=== PATIENT | female | born 1965 | race Two or more races ===

== ENCOUNTER 2024-02-13 17:48 | Emergency (ER) | payer MEDICAID, SELFPAY ==
[2024-02-13 18:23] VITALS: BP 179/92; PULSE 71; RESP 17; TEMP 36.7; O2SAT 97; BMI 29.9
--- NOTE | 2024-02-13 18:47 | XR_ITS ---
Examination: PA lateral chest 2 views Technique: Upright PA lateral chest 2 views Exam date and time: February 13, 2024 1942 hrs. Comparison January 21, 2016 Indications: Onset chest pain today. Findings: Normal heart size Minor subsegmental atelectasis in the lingular segment left upper lobe No interval pneumonia or pulmonary edema Diffuse moderate thoracic degenerative disc disease Impression: Atelectasis in the lingular segment left upper lobe No lobar pneumonia or pulmonary edema
--- NOTE | 2024-02-13 18:47 | EKG_ITS ---
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
--- NOTE | 2024-02-13 18:47 | PD.EDRME ---
Rapid Medical Screening Exam RME Arrival date/time: 02/13/24 17:48 Chief Complaint: General Adult/Misc Complain Time Seen by Provider: 02/13/24 18:33 Vital signs: Vital Signs Temperature 98.1 F 02/13/24 18:23 Pulse Rate 71 02/13/24 18:23 Respiratory Rate 17 02/13/24 18:23 Blood Pressure 179/92 H 02/13/24 18:23 Pulse Oximetry (%) 97 02/13/24 18:23 Oxygen Delivery Method Room Air 02/13/24 18:23 Vital signs reviewed by provider: Yes RME Narrative: 58-year-old female with hypertension and anxiety presents to the ED for evaluation of high blood pressure reading at home. She reports blood pressure reading of 200 systolic at 1730 today. She reports taking x 2 doses of her hypertension medication at that time. She denies chest pain, headache, visual changes, shortness of breath, cough.
[2024-02-13 19:28] LABS: Basophils % (Auto) 0 % (0-2.5); Eosinophils # (Auto) 0.1 Thou/mm3 (0.0-0.5); Eosinophils % (Auto) 1 % (0-10); Hematocrit 39.6 % (36.0-46.0); Hemoglobin 13.8 g/dL (12.0-16.0); Immature Granulocytes % (Auto) 0 % (0-0); Immature Granulocytes Auto 0.03 Thou/mm3 (0.00-0.00); Lymphocytes % (Auto) 19 % (10-50); Mean Corpuscular HGB Conc 34.8 g/dl (31.0-37.0); Mean Corpuscular Hemoglobin 29.6 pg (25.0-35.0); Mean Corpuscular Volume 85 fL (80-100); Monocytes # (Auto) 0.7 Thou/mm3 (0.0-0.8); Monocytes % (Auto) 7 % (0-12); Neutrophils # (Auto) 7.7 Thou/mm3 (1.8-7.7); Neutrophils % (Auto) 73 % (37-80); Nucleated Red Blood Cell % 0 /100 WBC (0); Platelet Count 219 Thou/mm3 (140-440); RDW Standard Deviation 39.5 fL (36.4-46.3); Red Blood Count 4.66 Miln/mm3 (4.00-5.20); White Blood Count 10.5 Thou/mm3 (3.6-11.0)
[2024-02-13 19:38] LABS: INR 1.1 (0.9-1.3); Partial Thromboplastin Time 29.4 Seconds (22.0-36.0); Prothrombin Time 11.6 Seconds (9.0-12.2)
[2024-02-13 19:41] LABS: B-Type Natriuretic Peptide 28 pg/mL (0-100)
[2024-02-13 19:43] LABS: Alanine Aminotransferase 32 U/L (10-49); Albumin, Serum 5.1 gm/dL (3.5-5.0); Albumin/Globulin Ratio 1.8 (1.2-2.2); Alkaline Phosphatase 74 U/L (46-116); Anion Gap 7 (7-16); Aspartate Amino Transferase 25 U/L (0-34); BUN/Creatinine Ratio 19 Ratio (12-20); Bilirubin,Total 0.5 mg/dL (0.3-1.2); Blood Urea Nitrogen 19 mg/dL (9-23); Calcium 10.4 mg/dL (8.3-10.6); Calcium (Corrected) 10.4 mg/dL (8.5-10.1); Carbon Dioxide 27.9 mMol/L (20.0-31.0); Chloride 98 mMol/L (98-107); Estimated Creatinine Clearance 63.9 mL/min (>60); Globulin 2.8 gm/dL (2.3-3.5); Glucose 131 mg/dL (74-106); Magnesium 1.9 mg/dL (1.6-2.6); Osmolality,Calculated 270 (275-295); Sodium 133 mMol/L (136-145); Total Protein 7.9 gm/dL (5.7-8.2); Troponin I < 0.020 ng/mL (0.0-0.045); eGFR > 60 See Note
[2024-02-13 19:59] LABS: Collection Type, Urine Clean Catch
[2024-02-13 20:10] LABS: Amphetamine/Methamp Scrn,U Negative (Negative); Barbiturate Screen,Urine Negative (Negative); Benzodiazepines Screen,Urine Negative (Negative); Benzoylecgonine Screen, Ur Negative (Negative); Fentanyl Screen,Urine Negative (Negative); Opiate Screen,Urine Negative (Negative); THC Screen,Urine Negative (Negative)
[2024-02-13 20:11] LABS: Bacteria,Urine Rare; Bilirubin,Urine Negative (Negative); Blood,Urine Negative (Negative); Clarity,Urine Clear (Clear/Hazy); Color,Urine Lt-Yellow (Lt Yel-Yel); Glucose, Urine Negative (Negative); Ketones,Urine Negative (Negative); Leukocyte Esterase,Urine Positive (Negative); Nitrite,Urine Negative (Negative); PH,Urine 6.5 (5.0-7.0); Protein,Urine Negative (Neg - Trace); RBC,Urine 1 /hpf (0-3); Specific Gravity,Urine 1.009 (1.001-1.035); Squamous Epithelial Cell,Urine < 1 /hpf (0-5); Urobilinogen,Urine Negative mg/dL (0.0-1.0); WBC,Urine 3 /hpf (0-5)
--- NOTE | 2024-02-13 20:30 | EDNOTE_ITS ---
ED General RME/HPI General Chief complaint: General Adult/Misc Complain Stated complaint: HIGH BP PER PT Time Seen by Provider: 02/13/24 18:33 Arrival date/time: 02/13/24 17:48 CC: Hypertension HPI patient states she got the flu shot 4 days ago and began to have some symptoms of the patient admits that she has anxiety and as she was worrying about the side effects of the shot she became more anxious driving her pressures up to last time she took her pressure was approximately 8 hours ago it was systolic of 200. Patient now feels much better. Blood pressure is 160/90. Patient denies chest pain shortness of breath or difficulty breathing. RME / HPI RME / HPI narrative: 58-year-old female with hypertension and anxiety presents to the ED for evaluation of high blood pressure reading at home. She reports blood pressure reading of 200 systolic at 1730 today. She reports taking x 2 doses of her hypertension medication at that time. She denies chest pain, headache, visual changes, shortness of breath, cough. Related Data Previous Rx's ?Medication ?Instructions ?Recorded lorazepam 1 mg tablet (Ativan) 1 mg PO BID PRN agitacion o 09/24/19 nervios #14 tabs Allergies Allergy/AdvReac Type Severity Reaction Status Date / Time guaifenesin Allergy Intermediate FAST HEART Verified 02/13/24 17:49 RATE apple Allergy Verified 02/13/24 17:49 egg Allergy Verified 02/13/24 17:49 Review of Systems Review of Systems Narrative Review of Systems: GEN: No fever, no chills, no weight loss EYES: No discharge, no visual changes, no pain HEENT: No ear pain, no congestion, no sore throat PULM: No shortness of breath, no cough, no congestion CV: No chest pain, no dyspnea on exertion, no palpitations GI: No nausea, no vomiting, no diarrhea, no pain, no constipation : No frequency, no urgency, no dysuria MUSC/SKEL: No joint pain, no back pain SKIN: No rash PSYCH: No hallucinations, no depression HEME/LYMPH: No easy bleeding or bruising tendencies NEURO: No weakness, no headache Past Medical History Past Medical History NEUROLOGIC: Positive Migraine CARDIAC: Positive Hypertension; Negative Congestive Heart Failure RESPIRATORY: Negative Chronic Obstructive Pulmonary Disease (COPD) GENITOURINARY: Negative Renal Disease ENDOCRINE: Negative Diabetes Mellitus Type 1 or Diabetes Mellitus Type 2 OTHER HISTORY: Positive Blood Transfusions Social History SMOKING STATUS: Never smoker ED Exam Narrative Physical exam: [General: Anxious but not in any acute distress Head normocephalic HEENT: Within acceptable limits Neck is supple nontender Chest equal chest rise nontender to palpation Respiratory: Clear to auscultation no wheezes crackles or rubs CV: Rate rhythm is regular no murmurs rubs or clicks Abdomen is soft nontender no masses positive bowel sounds all 4 quadrants Back: No CVA tenderness no spinous process tenderness from cervical spine thoracic and lumbar spine Skin: Intact no petechiae rash induration ulceration or crepitus Extremities: Moving all extremity against resistance cap refill less than 2 seconds neurosensory intact Neuro: Awake alert oriented x3 Glascow coma 15 no focal deficits] Course Quality Measures none Orders Category Date Time Status EKG (ED ONLY) *Do not use* NOW Care 02/13/24 18:47 Completed EKG (ED Only) Stat Exams 02/13/24 18:47 Draft XR chest 2V Stat Exams 02/13/24 18:47 Taken B-Type Natriuretic Peptide Stat Lab 02/13/24 19:08 Completed CBC Stat Lab 02/13/24 19:08 Completed Comprehensive Metabolic Panel Stat Lab 02/13/24 19:08 Completed Drug Screen,Urine Stat Lab 02/13/24 19:54 Completed Magnesium Stat Lab 02/13/24 19:08 Completed Partial Thromboplastin Time Stat Lab 02/13/24 19:08 Completed Prothrombin Time with INR Stat Lab 02/13/24 19:08 Completed Troponin I Stat Lab 02/13/24 19:08 Completed Urinalysis Stat Lab 02/13/24 19:54 Completed Vital Signs Vital signs: Vital Signs Temperature 98.1 F 02/13/24 18:23 Pulse Rate 71 02/13/24 18:23 Respiratory Rate 17 02/13/24 18:23 Blood Pressure 179/92 H 02/13/24 18:23 Pulse Oximetry (%) 97 02/13/24 18:23 Oxygen Delivery Method Room Air 02/13/24 18:23 [facility] Patient data External records reviewed:: [facility] previous records Clinical information provided by:: patient Social determinants that could affect healthcare access:: none Patient has the following chronic illnesses:: Hypertension How is presenting disease/condition affected by chronic disease/condition?: e xacerbated by Evaluation data The following diagnostics were reviewed and interpreted by me:: lab results, radiology exam(s) and EKG tracing(s) Lab and/or radiology exams considered but not ordered:: EKG performed at 1901 shows a ventricular rate of 6 5 IN interval 156 QRS of 81 QTc of 384 this is sinus rhythm. CMP shows no acute electrolyte imbalances renal impairment transaminitis or T. bili elevation CBC shows no leukocytosis anemia thrombocytopenia Urine is negative for UTI Troponin is negative BMP is negative Urine is negative Chest x-ray is negative for any acute finding requires emergent or immediate intervention. Interpretation Summary: Hypertension exaggerated by anxiety. Medications Medications considered but not ordered:: None Medication administrations:: None Consultations Consultation(s) initiated? (list below): No Diagnosis Differential Diagnosis ED Complaint MDM: Hypertension hypertensive urgency hypertensive emergency Most likely diagnosis given after review of the tests above:: Hypertension anxiety Admission Indicated Admission indicated?: not indicated Explain why admission is indicated or not indicated:: Stable for outpatient follow-up Admission Request Was there a request for admission?: No Disposition Plan Disposition Plan: Discharge Discharge Attestation Discharge Attestation: The patient and all family members were given an opportunity to ask questions and understood the discharge instructions. Discharge instructions specifically effects, indications for sooner follow up or return to the emergency department, and the expected course of current diagnosis. Patient condition: Stable Medical Decision Making Differential Diagnosis Differential Diagnosis: Hypertension hypertensive urgency hypertensive emergency Lab Data 02/13/24 19:08 02/13/24 19:08 Labs: Lab Results 02/13/24 02/13/24 Range/Units 19:08 19:54 WBC 10.5 (3.6-11.0) Thou/mm3 RBC 4.66 (4.00-5.20) Miln/mm3 Hgb 13.8 (12.0-16.0) g/dL Hct 39.6 (36.0-46.0) % MCV 85 (80-100) fL MCH 29.6 (25.0-35.0) pg MCHC 34.8 (31.0-37.0) g/dl RDW Std Deviation 39.5 (36.4-46.3) fL Plt Count 219 (140-440) Thou/mm3 Neut % (Auto) 73 (37-80) % Lymph % (Auto) 19 (10-50) % [place] % (Auto) 7 (0-12) % Eos % (Auto) 1 (0-10) % Baso % (Auto) 0 (0-2.5) % Neut # (Auto) 7.7 (1.8-7.7) Thou/mm3 Lymph # (Auto) 2.0 (1.0-4.8) Thou/mm3 [place] # (Auto) 0.7 (0.0-0.8) Thou/mm3 Eos # (Auto) 0.1 (0.0-0.5) Thou/mm3 Baso # (Auto) 0.0 (0.0-0.2) Thou/mm3 Immature Gran # (Auto) 0.03 H (0.00-0.00) Thou/mm3 Absolute Nucleated RBC 0.00 (0.00-0.00) Thou/mm3 Immature Gran % 0 (0-0) % Nucleated RBC % 0 (0) /100 WBC PT 11.6 (9.0-12.2) Seconds INR 1.1 (0.9-1.3) APTT 29.4 (22.0-36.0) Seconds Sodium 133 L (136-145) mMol/L Potassium 4.0 (3.4-5.1) mMol/L Chloride 98 (98-107) mMol/L Carbon Dioxide 27.9 (20.0-31.0) mMol/L Anion Gap 7 (7-16) BUN 19 (9-23) mg/dL Creatinine 1.0 (0.6-1.3) mg/dL Estim Creat Clear Calc 63.9 (>60) mL/min eGFR > 60 (60 - ) See Note BUN/Creatinine Ratio 19 (12-20) Ratio Glucose 131 H (74-106) mg/dL Calculated Osmolality 270 L (275-295) Calcium 10.4 (8.3-10.6) mg/dL Corrected Calcium 10.4 H (8.5-10.1) mg/dL Magnesium 1.9 (1.6-2.6) mg/dL Total Bilirubin 0.5 (0.3-1.2) mg/dL AST 25 (0-34) U/L ALT 32 (10-49) U/L Alkaline Phosphatase 74 (46-116) U/L Troponin I < 0.020 (0.0-0.045) ng/mL B-Natriuretic Peptide 28 (0-100) pg/mL Total Protein 7.9 (5.7-8.2) gm/dL Albumin 5.1 H (3.5-5.0) gm/dL Globulin 2.8 (2.3-3.5) gm/dL Albumin/Globulin Ratio 1.8 (1.2-2.2) Ur Collection Type Clean Catch Urine Color Lt-Yellow (Lt Yel-Yel) Urine Clarity Clear (Clear/Hazy) Urine pH 6.5 (5.0-7.0) Ur Specific [place] 1.009 (1.001-1.035) Urine Protein Negative (Neg - Trace) Urine Glucose (UA) Negative (Negative) Urine Ketones Negative (Negative) Urine Blood Negative (Negative) Urine Nitrite Negative (Negative) Urine Bilirubin Negative (Negative) Urine Urobilinogen (Auto) Negative (0.0-1.0) mg/dL Ur Leukocyte Esterase Positive (Negative) Urine RBC 1 (0-3) /hpf Urine WBC 3 (0-5) /hpf Ur Squamous Epith Cells < 1 (0-5) /hpf Urine Bacteria Rare (None) Urine Opiates Screen Negative (Negative) Urine Fentanyl Screen Negative (Negative) Ur Barbiturates Screen Negative (Negative) U Amphetamin/Meth Scrn Negative (Negative) U Benzodiazepines Scrn Negative (Negative) U Cocaine Metab Screen Negative (Negative) U Marijuana (THC) Screen Negative (Negative) Discharge Plan Plan Patient Disposition: HOME (Self Care) Patient condition on transfer: Stable Prescriptions/Referrals Prescriptions/Med Rec: No Action lorazepam [Ativan] 1 mg tablet 1 mg PO BID PRN (Reason: agitacion o nervios ) Qty: 14 0RF Referrals: Moiz Bronson([facility]MD [Primary Care Provider] - In 1 week Problem List Clinical Impression: Hypertension, Anxiety Patient/Caregiver Discharge Instructions Education Materials: ED Anxiety Reaction, Controlling High Blood Pressure Additional Instructions: Follow-up with your primary care provider if there is a worsening of symptoms return the emergency room medially for further evaluation. Print Language: Latvian Stand Alone Forms: Hilda Award Info., Patient Portal Info Letter, Work/School Release PA/AGUILAR Supervising Physician EDSON/AGUILAR Supervising Physician: Tio Leone ENP
[2024-02-13 20:59] VITALS: BP 137/84; PULSE 69; RESP 18; O2SAT 98
== END 2024-02-13 21:01 | disposition home or self-care (01) ==
PROVIDERS: Physician Assistant; Emergency Provider Emergency Medicine; PCP Family Medicine
DX: I10 Essential (primary) hypertension (principal); F41.9 Anxiety disorder, unspecified; R94.31 Abnormal electrocardiogram [ECG] [EKG]; R07.9 Chest pain, unspecified
CPT/HCPCS: 36415; 71046; 80053; 80307; 81001; 83735; 83880; 84484; 85025; 85610; 85730; 93005; 99283

== ENCOUNTER 2024-02-18 22:03 | Emergency (ER) | payer MEDICAID, SELFPAY ==
[2024-02-18 22:03] VITALS: BMI 33.8
[2024-02-18 22:12] VITALS: BP 165/92; PULSE 70; RESP 18; TEMP 36.9; O2SAT 99
--- NOTE | 2024-02-18 22:34 | PD.EDANX ---
ED Anxiety RME/HPI General Chief Complaint: General Adult/Misc Complain Stated Complaint: HIGH BLOOD PRESSURE Time Seen by Provider: 02/18/24 22:18 Arrival date/time: 02/18/24 22:03 58F with history of HTN and anxiety presents to ED with elevated BP and patient got worried. Patient has been sad/crying because this is around the time one of her children a long time ago. Patient has no other symptoms and has been taking her Zoloft as prescribed. Patient denies SI/HI. Limitations: no limitations Related Data Previous Rx's ?Medication ?Instructions ?Recorded lorazepam 1 mg tablet (Ativan) 1 mg PO BID PRN agitacion o 09/24/19 nervios #14 tabs Allergies Allergy/AdvReac Type Severity Reaction Status Date / Time guaifenesin Allergy Intermediate FAST HEART Verified 02/18/24 22:07 RATE apple Allergy Verified 02/18/24 22:07 egg Allergy Verified 02/18/24 22:07 Review of Systems Review of Systems Systems Reviewed: All systems reviewed, normal except as documented Constitutional Constitutional: Reports system reviewed and no additional complaints, except as documented, Denies fever(s) and Denies headache(s) ENT Ears, Nose, Mouth, and Throat: Denies disequilibrium and Denies headache(s) Cardiovascular Cardiovascular: Reports system reviewed and no additional complaints, except as documented, Denies chest pain and Denies dyspnea Respiratory Respiratory: Reports system reviewed and no additional complaints, except as documented, Denies cough and Denies dyspnea Gastrointestinal Gastrointestinal: Reports system reviewed and no additional complaints, except as documented, Denies abdominal pain, Denies nausea and Denies vomiting Neurologic Neurologic: Reports system reviewed and no additional complaints, except as documented, Denies confusion, Denies disequilibrium and Denies headache(s) Psychiatric Psychiatric: Reports as per HPI, Reports anxiety, Denies confusion and Reports depression Past Medical History Past Medical History NEUROLOGIC: Positive Migraine CARDIAC: Positive Hypertension; Negative Congestive Heart Failure RESPIRATORY: Negative Chronic Obstructive Pulmonary Disease (COPD) GENITOURINARY: Negative Renal Disease ENDOCRINE: Negative Diabetes Mellitus Type 1 or Diabetes Mellitus Type 2 OTHER HISTORY: Positive Blood Transfusions Social History SMOKING STATUS: Never smoker ED Exam General Limitations: Present no limitations General appearance: Present alert and in no apparent distress Head Head exam: Present atraumatic Eye Eye exam: Present normal appearance, PERRL and EOMI ENT ENT exam: Present normal exam, normal oropharynx and mucous membranes moist Neck Neck exam: Present normal inspection, full ROM and trachea midline Chest Chest inspection: Present normal inspection and symmetric chest wall rise Respiratory Respiratory exam: Present normal lung sounds bilaterally Cardiovascular Cardiovascular exam: Present regular rate, normal rhythm and normal heart sounds Abdominal Exam Abdominal exam: Present soft and normal bowel sounds Extremities Exam Extremities exam: Present normal inspection and full ROM Back Exam Back exam: Present normal inspection and full ROM Neurological Exam Neurological exam: Present alert, oriented X3 and CN II-XII intact Psychiatric Psychiatric exam: Present normal affect and anxious (crying) Skin Skin exam: Present warm, dry, intact and normal color Course Quality Measures none Vital Signs Vital signs: Vital Signs Temperature 98.5 F 02/18/24 22:12 Pulse Rate 70 02/18/24 22:12 Respiratory Rate 18 02/18/24 22:12 Blood Pressure 165/92 H 02/18/24 22:12 Pulse Oximetry (%) 99 02/18/24 22:12 Oxygen Delivery Method Room Air 02/18/24 22:12 Anxiety MDM Narrative MDM Narrative: 58F with history of HTN and anxiety presents to ED with elevated BP and patient got worried. Patient has been sad/crying because this is around the time one of her children a long time ago. Patient has no other symptoms and has been taking her Zoloft as prescribed. Patient denies SI/HI. Physical exam reveals clear lungs. RRR. Normal pupil response and EOM. Patient is afebrile, alert, but anxious/crying. Patient declines Benzos and just wanted to make sure she was physically okay. Supervisor Marble given. Patient data External records reviewed:: [facility] previous records Clinical information provided by:: patient Social determinants that could affect healthcare access:: mental health Patient has the following chronic illnesses:: HTN and anxiety How is presenting disease/condition affected by chronic disease/condition?: exacerbated by Evaluation data The following diagnostics were reviewed and interpreted by me:: other (specify) (none) Lab and/or radiology exams considered but not ordered:: not ordered Interpretation Summary: n/a Medications / Prescriptions Medications or Prescriptions considered but not ordered:: not ordered Medication administrations:: n/a Consultations Consultation(s) initiated? (list below): No Diagnosis Differential diagnosis anxiety: hyperventilation, panic disorder, acute anxiety and other (grief reaction) Most likely diagnosis given after review of the tests above:: grief reaction and anxiety Admission Indicated Admission indicated?: not indicated Admission Request Was there a request for admission?: No Disposition Plan Disposition Plan: Discharge Discharge Attestation Discharge Attestation: The patient and all family members were given an opportunity to ask questions and understood the discharge instructions. Discharge instructions specifically effects, indications for sooner follow up or return to the emergency department, and the expected course of current diagnosis. Patient condition: Stable Discharge Plan Plan Patient Disposition: HOME (Self Care) Disposition Comment: Stable Prescriptions/Referrals Prescriptions/Med Rec: No Action lorazepam [Ativan] 1 mg tablet 1 mg PO BID PRN (Reason: agitacion o nervios ) Qty: 14 0RF Problem List Clinical Impression: Anxiety, Grief reaction Patient/Caregiver Discharge Instructions Education Materials: Grief Loss Self Help Additional Instructions: Please follow-up with PCP within 24-48 hours and return immediately if symptoms worsen. Print Language: Mongolian Stand Alone Forms: Patient Portal Info Letter EDSON/AGUILAR Supervising Physician DEVIN Supervising Physician: Dr. Sanches
== END 2024-02-19 00:10 | disposition home or self-care (01) ==
LOC: SERX 22:26
PROVIDERS: Emergency Provider Emergency Medicine; PCP Family Medicine
DX: F43.22 Adjustment disorder with anxiety (principal)
CPT/HCPCS: 99281

== ENCOUNTER 2025-02-27 15:37 | Emergency (ER) | payer MEDICAID, SELFPAY ==
[2025-02-27 16:37] VITALS: BP 183/87; PULSE 109; RESP 20; TEMP 36.9; O2SAT 95
--- NOTE | 2025-02-27 16:48 | XR_ITS ---
EXAMINATION: PA lateral chest 2 views TECHNIQUE: Upright PA and lateral chest 2 views Date and time: February 27, 2025, 1654 hours, comparison February 13, 2024 INDICATIONS: Chest pain shortness of breath today. FINDINGS: Minor scarring in the left lower lung zone No interval pneumonia or pulmonary edema. Osseous structures are intact Normal heart size IMPRESSION: No interval pneumonia or pulmonary edema
--- NOTE | 2025-02-27 16:48 | EKG_ITS ---
[facility] Test Date: 2025-02-27 Pat Name: STACEY SANTIAGO Department: Room: - Gender: Female Service Center Representative: : 1965 Requested By: Dave Dejesus ([place]) Order Number: [id number] Reading MD: Dave Dejesus (OXYGEN THERAPY TECHNICIAN) Measurements Intervals [place] Rate: 112 P: 32 [place]: 148 QRS: -14 QRSD: 81 T: 52 QT: 317 QTc: 434 Interpretive Statements SINUS TACHYCARDIA LOW QRS VOLTAGE IN PRECORDIAL LEADS [QRS DEFLECTION < 1.0 mV IN CHEST LEADS] ANTERIOR MYOCARDIAL INFARCTION , PROBABLY OLD [40+ ms Q WAVE AND/OR ST/T ABNORMALITY IN V3/V4] INFERIOR MYOCARDIAL INFARCTION , PROBABLY OLD [40+ ms Q WAVE AND/OR ST/T ABNORMALITY IN II/aVF] Compared to ECG 02/13/2024 19:01:48 Myocardial infarct finding now present Sinus rhythm no longer present /store/S0/[id number].pdf
--- NOTE | 2025-02-27 16:49 | PD.EDRME ---
Rapid Medical Screening Exam RME Arrival date/time: 02/27/25 15:37 59-year-old female presents to the emergency department for complaint of chest pain patient ports that she flying to [facility] and she has anxiety about flying Chief Complaint: General Adult/Misc Complain Time Seen by Provider: 02/27/25 16:13 Vital signs: Vital Signs Temperature 98.4 F 02/27/25 16:37 Pulse Rate 109 H 02/27/25 16:37 Respiratory Rate 20 02/27/25 16:37 Blood Pressure 183/87 H 02/27/25 16:37 Pulse Oximetry (%) 95 02/27/25 16:37 Oxygen Delivery Method Room Air 02/27/25 16:37 Vital signs reviewed by provider: Yes Exam: On exam patient well-appearing does not appear ill or toxic no acute stress Clinical Impression: Lab work imaging EKG obtained
[2025-02-27 17:17] LABS: Basophils # (Auto) 0.0 Thou/mm3 (0.0-0.2); Basophils % (Auto) 0 % (0-2.5); Eosinophils # (Auto) 0.0 Thou/mm3 (0.0-0.5); Eosinophils % (Auto) 0 % (0-10); Hematocrit 41.9 % (36.0-46.0); Hemoglobin 14.0 g/dL (12.0-16.0); Immature Granulocytes Auto 0.04 Thou/mm3 (0.00-0.00); Lymphocytes # (Auto) 1.9 Thou/mm3 (1.0-4.8); Lymphocytes % (Auto) 17 % (10-50); Mean Corpuscular HGB Conc 33.4 g/dl (31.0-37.0); Mean Corpuscular Hemoglobin 28.8 pg (25.0-35.0); Mean Corpuscular Volume 86 fL (80-100); Monocytes # (Auto) 0.7 Thou/mm3 (0.0-0.8); Monocytes % (Auto) 6 % (0-12); Neutrophils # (Auto) 8.2 Thou/mm3 (1.8-7.7); Neutrophils % (Auto) 76 % (37-80); Nucleated Red Blood Cell # 0.00 Thou/mm3 (0.00-0.00); Nucleated Red Blood Cell % 0 /100 WBC (0); Platelet Count 260 Thou/mm3 (140-440); RDW Standard Deviation 39.3 fL (36.4-46.3); Red Blood Count 4.86 Miln/mm3 (4.00-5.20); White Blood Count 10.9 Thou/mm3 (3.6-11.0)
[2025-02-27 17:55] LABS: Alanine Aminotransferase 57 U/L (10-49); Albumin, Serum 5.7 gm/dL (3.4-4.8); Albumin/Globulin Ratio 2.0 (1.2-2.2); Alkaline Phosphatase 74 U/L (46-116); Anion Gap 11 (7-16); Aspartate Amino Transferase 35 U/L (0-34); BUN/Creatinine Ratio 18 Ratio (12-20); Bilirubin,Total 0.5 mg/dL (0.3-1.2); Blood Urea Nitrogen 18 mg/dL (9-23); Calcium 10.5 mg/dL (8.3-10.6); Calcium (Corrected) 10.5 mg/dL (8.5-10.1); Carbon Dioxide 28.6 mMol/L (20.0-31.0); Chloride 100 mMol/L (98-107); Creatinine (Component) 1.0 mg/dL (0.6-1.3); Globulin 2.8 gm/dL (2.3-3.5); Glucose 173 mg/dL (74-106); Osmolality,Calculated 285 (275-295); Potassium 3.8 mMol/L (3.4-5.1); Sodium 140 mMol/L (136-145); Total Protein 8.5 gm/dL (5.7-8.2); Troponin I < 0.020 ng/mL (0.0-0.045); eGFR > 60 See Note
[2025-02-27 20:46] VITALS: BP 176/97; BP 183/103; PULSE 87; RESP 18; TEMP 36.8; O2SAT 97
--- NOTE | 2025-02-27 20:58 | PD.EDADULT ---
ED General RME/HPI General Chief complaint: General Adult/Misc Complain Stated complaint: HIGH BP 215/ Time Seen by Provider: 02/27/25 16:13 Arrival date/time: 02/27/25 15:37 RME / HPI RME / HPI narrative: 02/27/25 15:37 59-year-old female presents to the emergency department for complaint of chest pain patient ports that she flying to [facility] and she has anxiety about flying Exam: On exam patient well-appearing does not appear ill or toxic no acute stress Impression: Lab work imaging EKG obtained Related Data Previous Rx's ?Medication ?Instructions ?Recorded lorazepam 1 mg tablet (Ativan) 1 mg PO BID PRN agitacion o 09/24/19 nervios #14 tabs metoprolol succinate 25 mg 25 mg PO QDAY 1 month #30 tabs 02/27/25 tablet,extended release 24 hr Allergies Allergy/AdvReac Type Severity Reaction Status Date / Time guaifenesin Allergy Intermediate FAST HEART Verified 02/27/25 15:41 RATE apple Allergy Verified 02/27/25 15:41 egg Allergy Verified 02/27/25 15:41 ED Exam Narrative Physical exam: Physical Exam: GENERAL: Awake, answering questions appropriately in [place], appears stated age HEENT: NC/AT. Moist mucosa. PERRLA/EOMI. CARDIO: Heart RRR, no obvious murmurs, no JVD. PULM: No coughing or visible SOB. Lungs CTA B/L. GI: Abdomen soft, NT/ND, +BS. SKIN/MSK/EXT: No wounds/discoloration/rashes/edema/amputations noted. +Pedal pulses present B/L. NEURO: Oriented x3, Moves extremities x4, no focal neurologic deficits noted. Course Quality Measures none Orders Category Date Time Status EKG (ED ONLY) *Do not use* NOW Care 02/27/25 16:48 Completed EKG (ED ONLY) *Do not use* NOW Care 02/27/25 21:05 Active EKG (ED Only) Stat Exams 02/27/25 16:48 Draft EKG (ED Only) Stat Exams 02/27/25 21:05 Ordered XR chest 2V Stat Exams 02/27/25 16:48 Completed CBC Stat Lab 02/27/25 16:54 Completed Comprehensive Metabolic Panel Stat Lab 02/27/25 16:54 Completed Troponin I Stat Lab 02/27/25 16:54 Completed Metoprolol Succinate Xl [Toprol Xl] Med 02/27/25 20:57 Discontinued 25 mg PO X1 ONE Vital Signs Vital signs: Vital Signs Temperature 98.4 F 02/27/25 16:37 Pulse Rate 109 H 02/27/25 16:37 Respiratory Rate 20 02/27/25 16:37 Blood Pressure 183/87 H 02/27/25 16:37 Pulse Oximetry (%) 95 02/27/25 16:37 Oxygen Delivery Method Room Air 02/27/25 16:37 Discharge Plan Plan Patient Disposition: HOME (Self Care) Discharge Disposition comment: Please take metoprolol succinate 25 mg by mouth once a day for high blood pressure Follow-up with your PCP within the next week for better blood pressure control and further workup for secondary causes of high blood pressure Ask your PCP to recheck your calcium levels and do further workup for hypercalcemia It appears that you have elevated liver enzymes likely secondary to MASLD, as your PCP for weight management Ask your PCP to refer you to child care counselor to establish care Patient condition on transfer: Stable Prescriptions/Referrals Prescriptions/Med Rec: New metoprolol succinate 25 mg tablet extended release 24 hr 25 mg PO QDAY 30 Days Qty: 30 0RF No Action lorazepam [Ativan] 1 mg tablet 1 mg PO BID PRN (Reason: agitacion o nervios ) Qty: 14 0RF Referrals: Anthony Vogt PA-C [Primary Care Provider] - In 1 week Problem List Clinical Impression: Primary hypertension Patient/Caregiver Discharge Instructions Education Materials: Hypertension Dc Print Language: [place] Stand Alone Forms: [employer]ilda Award Info., Patient Portal Info Letter MDM Narrative MDM hospital course (for use when minimal MDM required): HPI: 59-year-old female with past medical history of hypertension, depression presented to the ED on 02/27 with episodic chest pain which started earlier this morning. Patient states the pain felt like a tightening sensation in the central chest area without any radiation but she felt anxious during that time. Patient states that recently her son has had a surgery in the hospital and she has been feeling overwhelmed because of it. She denies having any associated shortness of breath, palpitations, orthopnea, paroxysmal nocturnal dyspnea or lower extremity edema. She says that she was seen previously by child care counselor couple years ago and workup was negative. Patient denies having any loss of consciousness, fever/chills or any other concerning symptoms at this time. Her blood pressure has been elevated and has been hard to control per the medication she has on board including chlorthalidone, lisinopril and clonidine started by PCP. On examination, please note the above physical exam findings. Patient's vitals on reassessment included persistent hypertension with a blood pressure 183/103, heart rate of 87, respiratory of 18 afebrile satting 97 on room air. Laboratory findings including WBCs unremarkable, CMP is also unremarkable other than mildly elevated corrected calcium of 10.5, elevated liver enzymes including AST of 35, ALT 57 but T. bili and alk phos are within normal limits. Patient's initial troponin is negative at less than 0.020. Chest x-ray negative for any acute findings and initial EKG does not show any concerning ST changes. #Differentials include: Anxiety disorder, unstable angina, coronary vasospasm, costochondritis #Atypical chest pain #Uncontrolled primary hypertension As noted above patient does have some risk factors including hypertension, obesity; however, during reassessment patient denied having any chest pain Troponin is negative, EKG does not show any concerning findings Her blood pressure could also be exacerbating her chest pain symptoms alongside history of stress Plan: Repeat EKG Ordering metoprolol succinate 25 mg p.o. daily Follow-up PCP within 5 to 7 days for closer monitoring of blood pressure and consider cardiology referral to establish care Patient seen and assessed with attending Dr. Yessi Matute, DO PGY-2 Internal Medicine - [facility] Lab(s) Interpretation(s): Laboratory findings including WBCs unremarkable, CMP is also unremarkable other than mildly elevated corrected calcium of 10.5, elevated liver enzymes including AST of 35, ALT 57 but T. bili and alk phos are within normal limits. Patient's initial troponin is negative at less than 0.020. Imaging Imaging Interpretation(s): Chest x-ray negative for any acute findings and initial EKG does not show any concerning ST changes. Medication Administration(s) Medication Administration History Discontinued Medications Metoprolol Succinate (Metoprolol Succinate Xl 25 Mg Tabcr) 25 mg PO X1 ONE Stop: 02/27/25 20:58 Last Admin: 02/27/25 21:01 Dose: 25 mg Documented By: DIYA
[2025-02-27 21:01] VITALS: BP 183/103; PULSE 87
[2025-02-27] MEDS: METOPROLOL SUCCINATE XL 25 MG TABCR PO (21:01)
--- NOTE | 2025-02-27 21:05 | EKG_ITS ---
[facility] Test Date: 2025-02-27 Pat Name: STACEY MCBRIDE Department: Room: - Gender: Female Deck Specialist: : [id number] Requested By: Dave Matute Order Number: [id number] Reading MD: Dave Matute Measurements Intervals [place] Rate: 86 P: 17 CO: 150 QRS: -29 QRSD: 76 T: 29 QT: 353 QTc: 423 Interpretive Statements SINUS RHYTHM LOW QRS VOLTAGE IN PRECORDIAL LEADS [QRS DEFLECTION < 1.0 mV IN CHEST LEADS] MODERATE VOLTAGE CRITERIA FOR LVH, CONSIDER NORMAL VARIANT [MEETS CRITERIA IN ONE OF: R(aVL), S(V1), R(V5), R(V5/V6)+S(V1)] INFERIOR MYOCARDIAL INFARCTION , PROBABLY OLD [40+ ms Q WAVE AND/OR ST/T ABNORMALITY IN II/aVF] ANTEROLATERAL MYOCARDIAL INFARCTION , PROBABLY OLD [40+ ms Q WAVE IN I/aVL/V3-V6] No previous ECG available for comparison /[id number]/S0/[id number].pdf
[2025-02-27 21:43] VITALS: BP 157/87; PULSE 88; RESP 18; TEMP 36.6; O2SAT 99
== END 2025-02-27 22:06 | disposition home or self-care (01) ==
PROVIDERS: Nurse Practitioner Primary Care; Emergency Provider Emergency Medicine; PCP Family Medicine
DX: I10 Essential (primary) hypertension (principal); R07.9 Chest pain, unspecified; R06.02 Shortness of breath; R00.0 Tachycardia, unspecified
CPT/HCPCS: 36415; 71046; 80053; 84484; 85025; 93005; 99283; A9270